=== PATIENT | male | born 1940 | race Caucasian/White ===

== ENCOUNTER 2018-01-30 06:12 | Emergency (ER) | payer MEDICARE, OTHER ==
[2018-01-30] MEDS ORDERED: Aspirin 81 MG Tab.Chew PO ONE (06:33)
[2018-01-30] MEDS ORDERED: Sodium Chloride 0.9% 10 ML Syringe FLUSH PRN (06:33)
--- NOTE | 2018-01-30 06:39 | EDM.PDOC ---
<Manolo Lucero - Last Filed: 01/30/18 06:35> ED HPI GENERAL MEDICAL PROBLEM - General Chief Complaint: Chest Pain Stated Complaint: CHEST PAIN Time Seen by Provider: 01/30/18 06:28 Source of Information: Reports: Patient History Limitations: Reports: No Limitations - History of Present Illness INITIAL COMMENTS - FREE TEXT/NARRATIVE: The patient presents with chest pain. This started a couple days ago. The pain comes and goes. It is in the lower chest and it is sharp. He has no pain now. He has no shortness of breath. He has no abdominal pain, nausea or vomiting. He has no fever, chills, or cough. 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 Onset: Gradual Duration: Day(s): (3) Location: Reports: Chest Quality: Reports: Sharp Severity: Moderate Improves with: Reports: None Worsens with: Reports: None Associated Symptoms: Reports: Chest Pain. Denies: Cough, Fever/Chills, Headaches, Nausea/Vomiting, Shortness of Breath - Related Data Allergies Allergy/AdvReac Type Severity Reaction Status Date / Time No Known Allergies Allergy Verified 01/30/18 06:16 Home Meds: Home Meds Hydroxyurea [Hydrea] 500 mg PO DAILY 12/06/14 [History] Lisinopril 1 tab PO DAILY 12/06/14 [History] Metoprolol Succinate 1 tab PO DAILY 12/06/14 [History] Triamterene/Hydrochlorothiazid [Triamterene-HCTZ 37.5-25 MG] 1 tab PO DAILY [History] Aspirin [Ecotrin] 81 mg PO DAILY 01/30/18 [History] Rosuvastatin [Crestor] 20 mg PO DAILY 01/30/18 [History] levETIRAcetam [Keppra] 500 mg PO BID 01/30/18 [History] Social & Family History - Tobacco Use Smoking Status *Q: Never Smoker Second Hand Smoke Exposure: No - Recreational Drug Use Recreational Drug Use: No ED ROS GENERAL - Review of Systems Review Of Systems: See Below Constitutional: Reports: No Symptoms HEENT: Reports: No Symptoms Respiratory: Reports: No Symptoms Cardiovascular: Reports: Chest Pain Endocrine: Reports: No Symptoms GI/Abdominal: Reports: No Symptoms : Reports: No Symptoms Musculoskeletal: Reports: No Symptoms ED EXAM, GENERAL - Physical Exam Exam: See Below Exam Limited By: No Limitations General Appearance: Alert, No Apparent Distress Ears: Normal External Exam Nose: Normal Inspection Head: Atraumatic, Normocephalic Neck: Normal Inspection Respiratory/Chest: No Respiratory Distress, Lungs Clear, Normal Breath Sounds Cardiovascular: Regular Rate, Rhythm, No Edema, No Murmur GI/Abdominal: Soft, Non-Tender, No Organomegaly, No Mass Extremities: Normal Inspection Neurological: Alert, Oriented, No Motor/Sensory Deficits EKG INTERPRETATION EKG Date: 01/30/18 Time: 06:17 Rhythm: NSR Rate (Beats/Min): 68 Blum: Normal P-Wave: Present QRS: Normal ST-T: Normal QT: Normal IA/PQ Interval: 1st degree HB Course - Vital Signs Last Recorded V/S: Last Vital Signs Temp 36.0 C 01/30/18 06:16 Pulse 76 01/30/18 06:16 Resp 18 01/30/18 06:16 BP 152/87 H 01/30/18 06:16 Pulse Ox 92 L 01/30/18 06:16 - Orders/Labs/Meds Orders: Active Orders 24 hr Category Date Time Status Cardiac Monitoring [RC] . DIRECTED Care 01/30/18 06:34 Active EKG Documentation Completion [RC] STAT Care 01/30/18 06:34 Active Peripheral IV Care [RC] . DIRECTED Care 01/30/18 06:34 Active Chest 1V Frontal [CR] Stat Exams 01/30/18 06:34 Taken Sodium Chloride 0.9% [Saline Flush] Med 01/30/18 06:33 Active 10 ml FLUSH ASDIRECTED PRN Peripheral IV Insertion Adult [OM.PC] Stat Oth 01/30/18 06:33 Ordered Medication Orders Sodium Chloride (Saline Flush) 10 ml FLUSH ASDIRECTED PRN PRN Reason: Keep Vein Open Last Admin: 01/30/18 06:40 Dose: 10 ml Labs: Laboratory Tests 01/30/18 01/30/18 01/30/18 Range/Units 06:30 06:30 06:30 WBC 5.13 (4.23-9.07) K/mm3 RBC 3.77 L (4.63-6.08) M/mm3 Hgb 13.8 (13.7-17.5) gm/L Hct 42.1 (40.1-51.0) % MCV 111.7 H (79.0-92.2) fl MCH 36.6 H (25.7-32.2) pg MCHC 32.8 (32.2-35.5) g/dl RDW Std Deviation 52.1 H (35.1-43.9) fL Plt Count 383 H (163-337) K/mm3 MPV 8.9 L (9.4-12.3) fl Neut % (Auto) 45.8 (34.0-67.9) % Lymph % (Auto) 36.8 (21.8-53.1) % [place] % (Auto) 15.0 H (5.3-12.2) % Eos % (Auto) 1.0 (0.8-7.0) Baso % (Auto) 1.2 (0.1-1.2) % Neut # (Auto) 2.35 (1.78-5.38) K/mm3 Lymph # (Auto) 1.89 (1.32-3.57) K/mm3 [place] # (Auto) 0.77 (0.30-0.82) K/mm3 Eos # (Auto) 0.05 (0.04-0.54) K/mm3 Baso # (Auto) 0.06 (0.01-0.08) K/mm3 Manual Slide Review Abnormal smear PT (9.5-12.1) SECONDS INR APTT (24-31) SECONDS D-Dimer, Quantitative 0.30 (0.19-0.50) mg/L Sodium 138 (136-145) mEq/L Potassium 3.7 (3.5-5.1) mEq/L Chloride 102 (98-107) mEq/L Carbon Dioxide 27 (21-32) mEq/L Anion Gap 12.7 (5-15) BUN 15 (7-18) mg/dL Creatinine 1.1 (0.7-1.3) mg/dL Est Cr Clr Drug Dosing 63.69 mL/min Estimated GFR (MDRD) > 60 (>60) mL/min BUN/Creatinine Ratio 13.6 L (14-18) Glucose 101 (83-115) mg/dL Calcium 9.1 (8.5-10.1) mg/dL Total Bilirubin 0.4 (0.2-1.0) mg/dL AST 22 (15-37) U/L ALT 29 (16-63) U/L Alkaline Phosphatase 49 (46-116) U/L Troponin I < 0.017 (0.00-0.056) ng/mL Total Protein 7.2 (6.4-8.2) g/dl Albumin 3.9 (3.4-5.0) g/dl Globulin 3.3 gm/dL Albumin/Globulin Ratio 1.2 (1-2) 01/30/18 Range/Units 06:30 WBC (4.23-9.07) K/mm3 RBC (4.63-6.08) M/mm3 Hgb (13.7-17.5) gm/L Hct (40.1-51.0) % MCV (79.0-92.2) fl MCH (25.7-32.2) pg MCHC (32.2-35.5) g/dl RDW Std Deviation (35.1-43.9) fL Plt Count (163-337) K/mm3 MPV (9.4-12.3) fl Neut % (Auto) (34.0-67.9) % Lymph % (Auto) (21.8-53.1) % [place] % (Auto) (5.3-12.2) % Eos % (Auto) (0.8-7.0) Baso % (Auto) (0.1-1.2) % Neut # (Auto) (1.78-5.38) K/mm3 Lymph # (Auto) (1.32-3.57) K/mm3 [place] # (Auto) (0.30-0.82) K/mm3 Eos # (Auto) (0.04-0.54) K/mm3 Baso # (Auto) (0.01-0.08) K/mm3 Manual Slide Review PT 10.8 (9.5-12.1) SECONDS INR 0.99 APTT 28 (24-31) SECONDS D-Dimer, Quantitative (0.19-0.50) mg/L Sodium (136-145) mEq/L Potassium (3.5-5.1) mEq/L Chloride (98-107) mEq/L Carbon Dioxide (21-32) mEq/L Anion Gap (5-15) BUN (7-18) mg/dL Creatinine (0.7-1.3) mg/dL Est Cr Clr Drug Dosing mL/min Estimated GFR (MDRD) (>60) mL/min BUN/Creatinine Ratio (14-18) Glucose (83-115) mg/dL Calcium (8.5-10.1) mg/dL Total Bilirubin (0.2-1.0) mg/dL AST (15-37) U/L ALT (16-63) U/L Alkaline Phosphatase (46-116) U/L Troponin I (0.00-0.056) ng/mL Total Protein (6.4-8.2) g/dl Albumin (3.4-5.0) g/dl Globulin gm/dL Albumin/Globulin Ratio (1-2) Meds: Medications Generic Name Dose Route Start Last Admin Trade Name Freq PRN Reason Stop Dose Admin Sodium Chloride 10 ml 01/30/18 06:33 01/30/18 06:40 Saline Flush FLUSH 10 ml ASDIRECTED PRN Administration Keep Vein Open Discontinued Medications Generic Name Dose Route Start Last Admin Trade Name Freq PRN Reason Stop Dose Admin Aspirin 324 mg 01/30/18 06:33 01/30/18 06:40 Aspirin PO 01/30/18 06:34 324 mg ONETIME ONE Administration - Re-Assessments/Exams Free Text/Narrative Re-Assessment/Exam: 01/30/18 06:38 I ordered an IV saline lock, aspirin, EKG, CXR, and labs. His EKG shows a 1st degree HB with no acute changes. It is change of shift Dr Macario to take over. Departure - Departure Disposition: Home, Self-Care 01 Clinical Impression: Chest pain of uncertain etiology Instructions: Chest Wall Pain Referrals: Obdulio Turner MD [Primary Care Provider] - Forms: ED Department Discharge Additional Instructions: You were seen in the emergency room for lower chest pain, on and off for the past 2 days. Workup in the ER included blood work, a chest x-ray, and an ECG. Your entire workup was unremarkable, and does not explain the cause of your pain. You have not suffered a heart attack. You do not have a blood clot in your lungs. You do not have pneumonia. You do not have a collapsed lung. If your chest pain persists, we recommend that you follow-up with your PCP, Dr. Turner, for further evaluation. <Calvin Macario - Last Filed: 01/30/18 08:20> ED HPI GENERAL MEDICAL PROBLEM - History of Present Illness INITIAL COMMENTS - FREE TEXT/NARRATIVE: The patient reports 2 days of a dull pain felt to the underside of both his left and right pectoralis muscles, extending as far as the axillae, but sparing the central chest. He also reports bilateral nipple soreness. When present, the pain will last for a few hours. He notices it primarily at night. Heat makes it feel better, but he has not found anything that makes it worse, including activity. He has no associated symptoms of dyspnea, nausea, diaphoresis, or sense of impending doom. He also denies associated abdominal pain, nausea, emesis, constipation, diarrhea, urinary symptoms, fever, chills, or cough. No prior similar symptoms. On closer scrutiny of the patient's history, it appears that he suffered a seizure on 12/06/2014. Initially there was a concern that he had an intracranial hemorrhage, and his troponin was mildly elevated. He was transferred [facility], where he underwent a MRI of the brain, an echocardiogram, and a nuclear stress test. His workup demonstrated a possible old stroke as a nidus for his seizure, otherwise, his workup was negative. The cause of his mildly elevated troponin was not discovered, although they did not feel that he had suffered a CT. He has never undergone a coronary angiogram. The patient's PCP is Dr. Turner. Past Medical History Cardiovascular History: Reports: High Cholesterol, Hypertension Neurological History: Reports: CVA (possible, per MRI/brain), Seizure Social & Family History - Alcohol Use Alcohol Use History: Yes Alcohol Use Frequency: Rarely - Recreational Drug Use Recreational Drug Use: No - Living Situation & Occupation Living situation: Reports: , Alone Occupation: Retired Course - Re-Assessments/Exams Free Text/Narrative Re-Assessment/Exam: 01/30/18 07:22 Portable chest radiograph appears to be grossly normal. Cardiac silhouette is within normal limits. No pulmonary vascular congestion. No pleural effusions. No focal infiltrate. No pneumothorax. Formal read per the Radiologist pending. 01/30/18 08:12 Test results discussed with the patient. Today's workup is unremarkable. Rules out recent cardiac injury, pulmonary embolus, pneumonia, and pneumothorax as potential causes for his pain. The exact etiology is unclear. I am recommending that he follow up with his PCP, Dr. Turner, for further evaluation. Departure - Departure Time of Disposition: 08:13 Condition: Good
[2018-01-30 08:28] VITALS: BP 125/70
--- NOTE | 2018-01-30 09:17 | CR ---
Chest: Portable view of the chest was obtained. Comparison: Prior chest x-ray of 10/12/09. Heart size and mediastinum are normal. Lungs are clear. Degenerative spurring is noted within the spine. Impression: 1. Nothing acute is identified on portable chest x-ray. Diagnostic code #1
== END 2018-01-30 08:25 | disposition home or self-care (01) ==
LOC: JD.ED 06:12
DX: R07.9 Chest pain, unspecified (principal); I10 Essential (primary) hypertension; E78.00 Pure hypercholesterolemia, unspecified; Z79.899 Other long term (current) drug therapy
CPT/HCPCS: 36415; 71045; 80053; 84484; 85025; 85379; 85610; 85730; 93005; 99284; A9270; J7050; 93010

== ENCOUNTER 2019-03-19 02:23 | Emergency (ER) | payer MEDICARE, OTHER ==
[2019-03-19 02:31] VITALS: BP 133/79
--- NOTE | 2019-03-19 03:10 | EDM.PDOC ---
ED HPI GENERAL MEDICAL PROBLEM - General Chief Complaint: Back Pain or Injury Stated Complaint: HIP PAIN Time Seen by Provider: 03/19/19 02:39 Source of Information: Reports: Patient History Limitations: Reports: No Limitations - History of Present Illness INITIAL COMMENTS - FREE TEXT/NARRATIVE: The patient presents with left hip and left lower back pain. This started a couple days ago. He has no injury. It is worse when he gets up from sitting. He has no numbness or weakness. He has no bowel or bladder problems. He has no fever, chills, cough, chest pain, shortness of breath, abdominal pain, nausea or vomiting. Onset: Gradual Duration: Day(s): Location: Reports: Back, Lower Extremity, Left (hip) Quality: Reports: Sharp Severity: Moderate Improves with: Reports: Immobilization Worsens with: Reports: Movement Associated Symptoms: Reports: No Other Symptoms Left Lower Back Pain Score (Numeric/FACES): 9 - Related Data Allergies Allergy/AdvReac Type Severity Reaction Status Date / Time No Known Allergies Allergy Verified 03/19/19 02:28 Home Meds: Home Meds Hydroxyurea [Hydrea] 500 mg PO DAILY 12/06/14 [History] Lisinopril 1 tab PO DAILY 12/06/14 [History] Metoprolol Succinate 1 tab PO DAILY 12/06/14 [History] Triamterene/Hydrochlorothiazid [Triamterene-HCTZ 37.5-25 MG] 1 tab PO DAILY [History] Aspirin [Ecotrin] 81 mg PO DAILY 01/30/18 [History] Rosuvastatin [Crestor] 20 mg PO DAILY 01/30/18 [History] levETIRAcetam [Keppra] 500 mg PO BID 01/30/18 [History] Naproxen [Naprosyn] 500 mg PO Q12HR PRN #20 tab 03/19/19 [Rx] Past Medical History HEENT History: Reports: Impaired Vision Other HEENT History: Wears glasses Cardiovascular History: Reports: Arrhythmia, High Cholesterol, Hypertension Musculoskeletal History: Reports: Fracture Neurological History: Reports: CVA, Seizure Social & Family History - Family History Family Medical History: Noncontributory - Tobacco Use Smoking Status *Q: Former Smoker Used Tobacco, but Quit: Yes Month/Year Tobacco Last Used: 2003 - Recreational Drug Use Recreational Drug Use: No - Living Situation & Occupation Living situation: Reports: , Alone Occupation: Retired ED ROS GENERAL - Review of Systems Review Of Systems: See Below Constitutional: Reports: No Symptoms HEENT: Reports: No Symptoms Respiratory: Reports: No Symptoms Cardiovascular: Reports: No Symptoms Endocrine: Reports: No Symptoms GI/Abdominal: Reports: No Symptoms : Reports: No Symptoms Musculoskeletal: Reports: Back Pain, Other (Left hip pain) ED EXAM,LOWER BACK PAIN/INJURY - Physical Exam Exam: See Below Exam Limited By: No Limitations General Appearance: Alert, No Apparent Distress Ears: Normal External Exam Nose: Normal Inspection Head: Atraumatic, Normocephalic Neck: Normal Inspection Respiratory/Chest: No Respiratory Distress, Lungs Clear, Normal Breath Sounds Cardiovascular: Regular Rate, Rhythm, No Edema, No Murmur GI/Abdominal: Soft, Non-Tender, No Organomegaly, No Mass Back Exam: Other (Mild pain upon palpation to the left lower lateral back) Extremities: Other (Mild pain upon palpation to the left upper hip. Good sensation and pulses distally. No pain with internal and external rotation and axial loading. ) Course - Vital Signs Last Recorded V/S: Last Vital Signs Temp 97.8 F 03/19/19 02:29 Pulse 76 03/19/19 02:29 Resp 17 03/19/19 02:29 BP 133/79 03/19/19 02:29 Pulse Ox 93 L 03/19/19 02:29 - Orders/Labs/Meds Orders: Active Orders 24 hr Category Date Time Status Hip Min 2V or 3V w Pelvis Lt [CR] Stat Exams 03/19/19 02:58 Taken Lumbar Spine 2 or 3V [CR] Stat Exams 03/19/19 02:57 Taken - Re-Assessments/Exams Free Text/Narrative Re-Assessment/Exam: 03/19/19 03:10 I ordered an x-ray of his left hip, pelvis and low back. 03/19/19 03:46 His x-rays show arthritis and decreased disc space in the lumbar spine with scoliosis. I will try some naprosyn for pain. Departure - Departure Time of Disposition: 03:50 Disposition: Home, Self-Care 01 Condition: Good Clinical Impression: Arthritis, Left hip pain Scoliosis Qualifiers: Scoliosis type: idiopathic Idiopathic scoliosis type: other Spinal region: lumbar Qualified Code(s): M41.26 - Other idiopathic scoliosis, lumbar region - Discharge Information *PRESCRIPTION DRUG MONITORING PROGRAM REVIEWED*: No *COPY OF PRESCRIPTION DRUG MONITORING REPORT IN PATIENT ALIDA: No Prescriptions: Naproxen [Naprosyn] 500 mg PO Q12HR PRN #20 tab PRN Reason: Pain Referrals: Obdulio Turner MD [Primary Care Provider] - 1 Week Forms: ED Department Discharge Additional Instructions: Take the naprosyn every 12 hours as needed for pain. Try some ice on your hip. Please return if you are worse. - My Orders Last 24 Hours: My Active Orders 03/19/19 02:57 Lumbar Spine 2 or 3V [CR] Stat 03/19/19 02:58 Hip Min 2V or 3V w Pelvis Lt [CR] Stat - Assessment/Plan Last 24 Hours: My Active Orders 03/19/19 02:57 Lumbar Spine 2 or 3V [CR] Stat 03/19/19 02:58 Hip Min 2V or 3V w Pelvis Lt [CR] Stat
--- NOTE | 2019-03-19 07:21 | CR ---
Pelvis and left hip: AP view of pelvis was obtained as well as AP and frog-leg lateral views of left hip. Joint spaces within both hips are maintained. Minimal spurring noted off of both superior acetabulum. Sacroiliac joints are within normal limits. Bony structures are osteopenic. Vascular calcification is seen. No fracture or other bony abnormality is seen. Impression: 1. Mild degenerative change and other incidental findings. 2. Nothing acute is seen. Diagnostic code #2
--- NOTE | 2019-03-19 07:21 | CR ---
Lumbar spine: AP, lateral and cone-down lateral views centered to the lumbosacral junction were obtained. Comparison: No prior lumbar spine imaging. Diffuse anterior endplate osteophytes are seen. Mild posterior osteophytes are noted at the L2-L3, L3-L4 and L4-L5. Fairly severe disc space narrowing is noted at L5-S1. Minimal scoliosis is seen. Pedicles are intact. Visualized transverse and spinous processes are intact. No subluxation is seen. Diffuse vascular calcification is noted within the aorta. Impression: 1. Scattered degenerative change and minimal scoliosis. 2. Vascular calcification. Diagnostic code #2
== END 2019-03-19 03:59 | disposition home or self-care (01) ==
LOC: JD.ED 02:23
DX: M41.26 Other idiopathic scoliosis, lumbar region (principal); M16.12 Unilateral primary osteoarthritis, left hip; I10 Essential (primary) hypertension; E78.00 Pure hypercholesterolemia, unspecified; Z87.891 Personal history of nicotine dependence; Z79.899 Other long term (current) drug therapy
CPT/HCPCS: 72100; 72100-26; 73502-26-LT; 73502-LT; 99283; 99283-25

== ENCOUNTER 2021-02-21 23:01 | Emergency (ER) | payer MEDICARE, OTHER ==
[2021-02-21 23:22] VITALS: BP 137/74; PULSE 71
--- NOTE | 2021-02-22 00:17 | EDM.PDOC ---
ED HPI GENERAL MEDICAL PROBLEM - General Chief Complaint: Genitourinary Problem Stated Complaint: UNABLE TO URINATE Time Seen by Provider: 02/21/21 23:39 Source of Information: Reports: Patient History Limitations: Reports: No Limitations - History of Present Illness INITIAL COMMENTS - FREE TEXT/NARRATIVE: Patient arrived to ED by private vehicle He reports intermittent urinary frequency and hesitancy over the past couple weeks Tonight he was unable to void "since daytime" so came to ED for evaluation Upon arrival to ED, he went "straight to the bathroom" and was able to void, with improvement in discomfort He endorses some discomfort with urination Denies nausea, fever, back pain Denies extremity weakness or paresthesias Denies any bowel dysfunction - Related Data Allergies Allergy/AdvReac Type Severity Reaction Status Date / Time No Known Allergies Allergy Verified 02/21/21 23:22 Home Meds: Home Meds Hydroxyurea [Hydrea] 500 mg PO DAILY 12/06/14 [History] Lisinopril 1 tab PO DAILY 12/06/14 [History] Metoprolol Succinate 1 tab PO DAILY 12/06/14 [History] Triamterene/Hydrochlorothiazid [Triamterene-HCTZ 37.5-25 MG] 1 tab PO DAILY 12/06/14 [History] Aspirin [Ecotrin] 81 mg PO DAILY 01/30/18 [History] Rosuvastatin [Crestor] 20 mg PO DAILY 01/30/18 [History] levETIRAcetam [Keppra] 500 mg PO BID 01/30/18 [History] Naproxen [Naprosyn] 500 mg PO Q12HR PRN #20 tab 03/19/19 [Rx] Past Medical History HEENT History: Reports: Impaired Vision Other HEENT History: Wears glasses Cardiovascular History: Reports: Arrhythmia, High Cholesterol, Hypertension Musculoskeletal History: Reports: Fracture Neurological History: Reports: CVA, Seizure Social & Family History - Family History Family Medical History: No Pertinent Family History - Tobacco Use Tobacco Use Status *Q: Former Tobacco User Used Tobacco, but Quit: Yes Month/Year Tobacco Last Used: 20 yrs ago - Living Situation & Occupation Living situation: Reports: , Alone Occupation: Retired ED ROS GENERAL - Review of Systems Review Of Systems: See Below Free Text/Narrative/Comment: Constitutional - no fever Cardiovascular - no chest pain Respiratory - no shortness of breath; no cough Gastrointestinal - no abdominal pain; no nausea; no vomiting; no diarrhea Genitourinary - mild dysuria; urinary frequency Musculoskeletal - no neck pain; no back pain; no extremity injury Neurological - no headache; no speech disturbance; no weakness ED EXAM, GENERAL - Physical Exam Exam: See Below Free Text/Narrative:: Constitutional - awake; alert; no acute distress Head - no facial swelling or weakness Eyes - extra ocular motion intact; conjunctiva normal ENT - no nasal deformity; no epistaxis; normal phonation Respiratory - normal respiratory effort GI/Abdomen - soft; no tenderness; no rebound; no guarding; mild suprapubic fullness Genitourinary - normal rectal tone; prostate significantly enlarged and firm with some nodularity Musculoskeletal - grossly normal strength and motion; no swelling or deformity Skin - warm; dry Neurologic - normal speech; no weakness; gait intact Psychiatric - normal mood and affect; memory and attention normal Course - Vital Signs Text/Narrative:: . Considered etiologies included: urinary frequency, urinary retention, prostate disease Symptoms and examination were discussed There were no significant findings for spinal cord compression or cauda equina syndrome Investigations were initiated Consideration for urinary catheter placement was discussed and deferred He was advised of abnormal prostate findings and need for timely urology follow- up Possibility for urinary retention in near future was discussed Patient was felt to be stable for outpatient follow-up Return precautions were provided Last Recorded V/S: Last Vital Signs Temp 36.2 C 02/21/21 23:20 Pulse 71 02/21/21 23:20 Resp 16 02/21/21 23:20 BP 137/74 02/21/21 23:20 Pulse Ox 98 02/21/21 23:20 - Orders/Labs/Meds Labs: Laboratory Tests 02/22/21 Range/Units 00:13 Urine Color Yellow (Yellow) Urine Appearance Clear (Clear) Urine pH 6.0 (5.0-8.0) Ur Specific [place] > or = 1.030 (1.005-1.030) Urine Protein Negative (Negative) Urine Glucose (UA) Negative (Negative) Urine Ketones Negative (Negative) Urine Occult Blood Negative (Negative) Urine Nitrite Negative (Negative) Urine Bilirubin Negative (Negative) Urine Urobilinogen 0.2 (0.2-1.0) Ur Leukocyte Esterase Negative (Negative) U Hyaline Cast (Auto) 0-5 (0-5) /lpf Urine RBC Not seen (0-5) /hpf Urine WBC 0-5 (0-5) /hpf Ur Squamous Epith Cells 0-5 (0-5) /hpf Urine Bacteria Rare (FEW) /hpf Urine Mucus Rare (FEW) /hpf Departure - Departure Time of Disposition: 00:54 Disposition: Home, Self-Care 01 Condition: Good Clinical Impression: Enlarged prostate, Urinary dysfunction - Discharge Information Instructions: Acute Urinary Retention, Male Referrals: Obdulio Turner MD [Primary Care Provider] - Forms: ED Department Discharge Additional Instructions: Return if condition worsens May resume general activity and regular diet as tolerated Continue usual medications Follow-up with primary care provider is recommended Follow-up with urologist is recommended within 1 week Call [facility] ([phone]) or [facility] ([phone]) to arrange urology consultation Inform urology clinic that you are having urination difficulties, with abnormal prostate texture on examination Sepsis Event Note (ED) - Evaluation Sepsis Screening Result: No Definite Risk
== END 2021-02-22 01:41 | disposition home or self-care (01) ==
LOC: JD.ED 23:01
DX: N40.1 Benign prostatic hyperplasia with lower urinary tract symptoms (principal); R35.0 Frequency of micturition; N39.9 Disorder of urinary system, unspecified; E78.00 Pure hypercholesterolemia, unspecified; I10 Essential (primary) hypertension; Z79.82 Long term (current) use of aspirin; Z79.899 Other long term (current) drug therapy; Z87.891 Personal history of nicotine dependence
CPT/HCPCS: 81001; 99283

== ENCOUNTER 2021-03-02 22:29 | Emergency (ER) | payer MEDICARE, OTHER ==
[2021-03-02 22:51] VITALS: BP 156/103; PULSE 114
[2021-03-03] MEDS ORDERED: Tamsulosin 0.4 MG Cap.ER PO ONE (00:51)
--- NOTE | 2021-03-03 00:54 | EDM.PDOC ---
ED HPI GENERAL MEDICAL PROBLEM - General Chief Complaint: Genitourinary Problem Stated Complaint: UNABLE TO URINATE Time Seen by Provider: 03/02/21 22:58 Source of Information: Reports: Patient, RN Notes Reviewed - History of Present Illness INITIAL COMMENTS - FREE TEXT/NARRATIVE: Has had voiding difficulty off and on for a long time, worse the past few weeks. Was seen here about 9 days ago. Prostate noted to be enlarged at that time with nodules palpable on exam. As a result of that visit has a Urology appointment for early next week. Yesterday and today has urgency, frequency, going just small amounts at a time. No hematuria. No fever or chills. - Related Data Allergies Allergy/AdvReac Type Severity Reaction Status Date / Time No Known Allergies Allergy Verified 03/02/21 22:39 Home Meds: Home Meds Hydroxyurea [Hydrea] 500 mg PO DAILY 12/06/14 [History] Lisinopril 1 tab PO DAILY 12/06/14 [History] Metoprolol Succinate 1 tab PO DAILY 12/06/14 [History] Triamterene/Hydrochlorothiazid [Triamterene-HCTZ 37.5-25 MG] 1 tab PO DAILY 12/06/14 [History] Aspirin [Ecotrin] 81 mg PO DAILY 01/30/18 [History] Rosuvastatin [Crestor] 20 mg PO DAILY 01/30/18 [History] levETIRAcetam [Keppra] 500 mg PO BID 01/30/18 [History] Naproxen [Naprosyn] 500 mg PO Q12HR PRN #20 tab 03/19/19 [Rx] Tamsulosin HCl [Flomax] 0.4 mg PO DAILY #10 cap.er.24h 03/03/21 [Rx] Past Medical History HEENT History: Reports: Impaired Vision Other HEENT History: Wears glasses Cardiovascular History: Reports: Arrhythmia, High Cholesterol, Hypertension Respiratory History: Reports: None Gastrointestinal History: Reports: None Genitourinary History: Reports: None Musculoskeletal History: Reports: Fracture Neurological History: Reports: CVA, Seizure Psychiatric History: Reports: None Endocrine/Metabolic History: Reports: None Hematologic History: Reports: None Immunologic History: Reports: None Oncologic (Cancer) History: Reports: None Dermatologic History: Reports: None - Infectious Disease History Infectious Disease History: Reports: Chicken Pox, Measles, Mumps - Past Surgical History Head Surgeries/Procedures: Reports: None Male Surgical History: Reports: None Social & Family History - Family History Family Medical History: No Pertinent Family History - Tobacco Use Tobacco Use Status *Q: Never Tobacco User - Caffeine Use Caffeine Use: Reports: Coffee - Recreational Drug Use Recreational Drug Use: No - Living Situation & Occupation Living situation: Reports: , Alone Occupation: Retired ED ROS GENERAL - Review of Systems Review Of Systems: See Below Constitutional: Denies: Fever, Chills HEENT: Reports: No Symptoms Respiratory: Denies: Shortness of Breath Cardiovascular: Denies: Chest Pain GI/Abdominal: Denies: Abdominal Pain, Nausea, Vomiting : Reports: Frequency, Urgency. Denies: Dysuria, Hematuria Musculoskeletal: Denies: Back Pain Skin: Reports: No Symptoms ED EXAM, RENAL/ - Physical Exam Exam: See Below General Appearance: Alert, No Apparent Distress Head: Atraumatic Neck: Supple Respiratory/Chest: No Respiratory Distress Cardiovascular: Regular Rate, Rhythm GI/Abdominal: Soft, Non-Tender. No: Distended, Guarding Extremities: No: Pedal Edema, Leg Pain Neurological: Alert, Oriented, No Motor/Sensory Deficits Skin Exam: Dry, Normal Color, No Rash Course - Vital Signs Last Recorded V/S: Last Vital Signs Temp 98.7 F 03/02/21 22:46 Pulse 114 H 03/02/21 22:46 Resp 20 03/02/21 22:46 BP 156/103 H 03/02/21 22:46 Pulse Ox 93 L 03/02/21 22:46 - Orders/Labs/Meds Labs: Laboratory Tests 03/02/21 Range/Units 23:55 Urine Color Yellow (Yellow) Urine Appearance Clear (Clear) Urine pH 6.0 (5.0-8.0) Ur Specific [place] 1.020 (1.005-1.030) Urine Protein Negative (Negative) Urine Glucose (UA) Negative (Negative) Urine Ketones Negative (Negative) Urine Occult Blood Negative (Negative) Urine Nitrite Negative (Negative) Urine Bilirubin Negative (Negative) Urine Urobilinogen 0.2 (0.2-1.0) Ur Leukocyte Esterase Trace H (Negative) U Hyaline Cast (Auto) 5-10 H (0-5) /lpf Urine RBC 0-5 (0-5) /hpf Urine WBC 0-5 (0-5) /hpf Ur Squamous Epith Cells Not seen (0-5) /hpf Urine Bacteria Rare (FEW) /hpf Urine Mucus Rare (FEW) /hpf Meds: Medications Discontinued Medications Generic Name Dose Route Start Last Admin Trade Name Tomasz PRN Reason Stop Dose Admin Tamsulosin HCl 0.4 mg 03/03/21 00:51 03/03/21 00:59 Tamsulosin 0.4 Mg Cap.Er PO 03/03/21 00:52 0.4 mg ONETIME ONE Administration - Re-Assessments/Exams Free Text/Narrative Re-Assessment/Exam: 03/03/21 03:24 Ua does not show acute infection or hematuria. Had prostate checked 9 days ago, recent ED visit. Will start him on flomax. His Urology appt. is next week about 5 days from now. Departure - Departure Time of Disposition: 00:52 Disposition: Home, Self-Care 01 Condition: Fair Clinical Impression: Retention of urine, Enlarged prostate - Discharge Information Prescriptions: Tamsulosin HCl [Flomax] 0.4 mg PO DAILY #10 cap.er.24h Instructions: Benign Prostatic Hyperplasia, Acute Urinary Retention, Male, [id number] Referrals: PCP,None [Primary Care Provider] - Forms: ED Department Discharge Additional Instructions: Drink plenty of water to maintain hydration. Flomax 0.4 mg daily. Prescription has been sent to [facility] on [address]. See Urologist next week as planned. Return to ED as needed. Sepsis Event Note (ED) - Evaluation Sepsis Screening Result: No Definite Risk - Focused Exam Vital Signs: Vital Signs Temp Pulse Resp BP Pulse Ox 03/02/21 22:46 98.7 F 114 H 20 156/103 H 93 L
== END 2021-03-03 01:00 | disposition home or self-care (01) ==
LOC: JD.ED 22:29
DX: N40.1 Benign prostatic hyperplasia with lower urinary tract symptoms (principal); R33.9 Retention of urine, unspecified; E78.00 Pure hypercholesterolemia, unspecified; I10 Essential (primary) hypertension; Z79.899 Other long term (current) drug therapy; Z79.82 Long term (current) use of aspirin
CPT/HCPCS: 81001; 99283; A9270

== ENCOUNTER 2021-03-30 06:31 | Emergency (ER) | payer MEDICARE, OTHER ==
[2021-03-30 06:48] VITALS: BP 134/75; PULSE 84
--- NOTE | 2021-03-30 07:05 | EDM.PDOC ---
ED HPI GENERAL MEDICAL PROBLEM - General Chief Complaint: Genitourinary Problem Stated Complaint: DIFFICULTY URINATING Time Seen by Provider: 03/30/21 07:05 - History of Present Illness INITIAL COMMENTS - FREE TEXT/NARRATIVE: 80-year-old male returns emergency week room with urinary difficulties. Patient is having a hard time getting his stream going and have a hard time emptying he can dribble but that is about it. He denies any fevers or chills or no other complaints at this time. Patient has seen urology in the past they talked about putting a catheter in but that did not happen. Patient does not really have discomfort when he voids. The patient cannot recall which urologist he saw him but believes it was at [facility]. - Related Data Allergies Allergy/AdvReac Type Severity Reaction Status Date / Time No Known Allergies Allergy Verified 03/30/21 06:48 Home Meds: Home Meds Hydroxyurea [Hydrea] 500 mg PO DAILY 12/06/14 [History] Lisinopril 5 mg PO DAILY 12/06/14 [History] Metoprolol Succinate 50 mg PO DAILY 12/06/14 [History] Triamterene/Hydrochlorothiazid [Triamterene-HCTZ 37.5-25 MG] 1 tab PO DAILY 12/06/14 [History] Aspirin [Ecotrin] 81 mg PO DAILY 01/30/18 [History] Rosuvastatin [Crestor] 20 mg PO DAILY 01/30/18 [History] levETIRAcetam [Keppra] 500 mg PO BID 01/30/18 [History] Tamsulosin HCl [Flomax] 0.4 mg PO DAILY #10 cap.er.24h 03/03/21 [Rx] Past Medical History HEENT History: Reports: Impaired Vision Other HEENT History: Wears glasses Cardiovascular History: Reports: Arrhythmia, High Cholesterol, Hypertension Respiratory History: Reports: None Gastrointestinal History: Reports: None Genitourinary History: Reports: Retention, Urinary Musculoskeletal History: Reports: Fracture Neurological History: Reports: CVA, Seizure Psychiatric History: Reports: None Endocrine/Metabolic History: Reports: None Hematologic History: Reports: None Immunologic History: Reports: None Oncologic (Cancer) History: Reports: None Dermatologic History: Reports: None - Infectious Disease History Infectious Disease History: Reports: Chicken Pox, Measles, Mumps - Past Surgical History Head Surgeries/Procedures: Reports: None Male Surgical History: Reports: None Social & Family History - Family History Family Medical History: No Pertinent Family History - Tobacco Use Tobacco Use Status *Q: Former Tobacco User Used Tobacco, but Quit: Yes Month/Year Tobacco Last Used: 10/21/2009 - Caffeine Use Caffeine Use: Reports: None - Recreational Drug Use Recreational Drug Use: No - Living Situation & Occupation Living situation: Reports: , Alone Occupation: Retired ED ROS GENERAL - Review of Systems Review Of Systems: See Below Constitutional: Reports: No Symptoms HEENT: Reports: No Symptoms Respiratory: Reports: No Symptoms Cardiovascular: Reports: No Symptoms GI/Abdominal: Reports: No Symptoms : Reports: Urinary Retention. Denies: Discharge, Dysuria, Flank Pain, Frequency, Urgency Musculoskeletal: Reports: No Symptoms Neurological: Reports: No Symptoms ED EXAM, GENERAL - Physical Exam Exam: See Below Exam Limited By: No Limitations General Appearance: Alert, No Apparent Distress Head: Atraumatic, Normocephalic Neck: Normal Inspection, Supple, Non-Tender, Full Range of Motion Respiratory/Chest: No Respiratory Distress, Lungs Clear, Normal Breath Sounds, No Accessory Muscle Use, Chest Non-Tender Cardiovascular: Normal Peripheral Pulses, Regular Rate, Rhythm, No Edema GI/Abdominal: Normal Bowel Sounds, Soft, Non-Tender Back Exam: Normal Inspection. No: CVA Tenderness (L), CVA Tenderness (R) Course - Vital Signs Last Recorded V/S: Last Vital Signs Temp 36.6 C 03/30/21 06:44 Pulse 84 03/30/21 06:44 Resp 20 03/30/21 06:44 BP 134/75 03/30/21 06:44 Pulse Ox 95 03/30/21 06:44 - Orders/Labs/Meds Labs: Laboratory Tests 03/30/21 Range/Units 07:15 Urine Color Yellow (Yellow) Urine Appearance Clear (Clear) Urine pH 6.5 (5.0-8.0) Ur Specific [place] 1.020 (1.005-1.030) Urine Protein Negative (Negative) Urine Glucose (UA) Negative (Negative) Urine Ketones Negative (Negative) Urine Occult Blood Negative (Negative) Urine Nitrite Negative (Negative) Urine Bilirubin Negative (Negative) Urine Urobilinogen 0.2 (0.2-1.0) Ur Leukocyte Esterase Negative (Negative) - Re-Assessments/Exams Free Text/Narrative Re-Assessment/Exam: 03/30/21 07:28 Were able to get about 100 cc urine clean catch. I did contact [facility] call and apparently the patient saw Dr. Powell at the end of last month. 03/30/21 07:53 Patient's urinalysis does not suggest an infectious process. I discussed situation with Dr. Bender, on-call urologist at [facility] his recommendation is to put a Veronica in the patient will be more comfortable. And have the patient follow-up with his regular urologist next week as scheduled. Departure - Departure Time of Disposition: 07:54 Disposition: Home, Self-Care 01 Clinical Impression: Urinary obstruction - Discharge Information Instructions: Indwelling Urinary Catheter Care, Adult Referrals: Ashlyn Houston NP [Primary Care Provider] - Forms: ED Department Discharge Additional Instructions: Return to the emergency room with any questions problems or concerning symptoms. Follow-up with Dr. Powell early next week if possible, I am not sure what day next week your appointment is scheduled for. Sepsis Event Note (ED) - Evaluation Sepsis Screening Result: No Definite Risk - Focused Exam Vital Signs: Vital Signs Temp Pulse Resp BP Pulse Ox 03/30/21 06:44 36.6 C 84 20 134/75 95
== END 2021-03-30 08:30 | disposition home or self-care (01) ==
LOC: JD.ED 06:31
DX: N13.9 Obstructive and reflux uropathy, unspecified (principal); E78.00 Pure hypercholesterolemia, unspecified; I10 Essential (primary) hypertension; Z87.891 Personal history of nicotine dependence; Z79.82 Long term (current) use of aspirin; Z79.899 Other long term (current) drug therapy
CPT/HCPCS: 51702; 81003; 99283; 99283-25

== ENCOUNTER 2021-04-20 07:01 | Emergency (ER) | payer MEDICARE, OTHER ==
[2021-04-20 07:31] VITALS: BP 120/81; PULSE 70
--- NOTE | 2021-04-20 07:54 | EDM.PDOC ---
ED HPI GENERAL MEDICAL PROBLEM - General Chief Complaint: Genitourinary Problem Stated Complaint: URINARY ISSUES NOT BETTER Time Seen by Provider: 04/20/21 07:29 Source of Information: Reports: Patient History Limitations: Reports: No Limitations - History of Present Illness INITIAL COMMENTS - FREE TEXT/NARRATIVE: 80 yo M with indwelling marie presents with marie problem. Catheter had disconnected from leg bag anchor/straps. Nurses fixed the issue prior to me seeing the patient. He has no other concerns. No fever/illness. States his urology f/u appointment was moved, he doesn't know when it is. I encouraged him to follow up locally with Dr. Turner. Discussed ED return precautions. - Related Data Allergies Allergy/AdvReac Type Severity Reaction Status Date / Time No Known Allergies Allergy Verified 04/20/21 07:25 Home Meds: Home Meds Hydroxyurea [Hydrea] 500 mg PO DAILY 12/06/14 [History] Lisinopril 5 mg PO DAILY 12/06/14 [History] Metoprolol Succinate 50 mg PO DAILY 12/06/14 [History] Triamterene/Hydrochlorothiazid [Triamterene-HCTZ 37.5-25 MG] 1 tab PO DAILY 12/06/14 [History] Aspirin [Ecotrin] 81 mg PO DAILY 01/30/18 [History] Rosuvastatin [Crestor] 20 mg PO DAILY 01/30/18 [History] levETIRAcetam [Keppra] 500 mg PO BID 01/30/18 [History] Tamsulosin HCl [Flomax] 0.4 mg PO DAILY #10 cap.er.24h 03/03/21 [Rx] Past Medical History HEENT History: Reports: Impaired Vision Other HEENT History: Wears glasses Cardiovascular History: Reports: Arrhythmia, High Cholesterol, Hypertension Respiratory History: Reports: None Gastrointestinal History: Reports: None Genitourinary History: Reports: Retention, Urinary Musculoskeletal History: Reports: Fracture Neurological History: Reports: CVA, Seizure Psychiatric History: Reports: None Endocrine/Metabolic History: Reports: None Hematologic History: Reports: None Immunologic History: Reports: None Oncologic (Cancer) History: Reports: None Dermatologic History: Reports: None - Infectious Disease History Infectious Disease History: Reports: Chicken Pox, Measles, Mumps - Past Surgical History Head Surgeries/Procedures: Reports: None Male Surgical History: Reports: None Social & Family History - Family History Family Medical History: No Pertinent Family History - Tobacco Use Tobacco Use Status *Q: Former Tobacco User Years of Tobacco use: 4 Packs/Tins Daily: 1 Used Tobacco, but Quit: Yes Month/Year Tobacco Last Used: 10/1980 Second Hand Smoke Exposure: No - Caffeine Use Caffeine Use: Reports: Coffee - Recreational Drug Use Recreational Drug Use: No - Living Situation & Occupation Living situation: Reports: , Alone Occupation: Retired ED ROS GENERAL - Review of Systems Review Of Systems: See Below Constitutional: Denies: Fever GI/Abdominal: Reports: No Symptoms : Reports: Other (marie problem ) ED EXAM, GENERAL - Physical Exam Exam: See Below Exam Limited By: No Limitations General Appearance: Alert, WD/WN, No Apparent Distress Head: Atraumatic Neck: Normal Inspection Respiratory/Chest: No Respiratory Distress GI/Abdominal: Non-Tender, No Distention Neurological: Alert Psychiatric: Normal Affect Skin Exam: Warm, Dry Course - Vital Signs Last Recorded V/S: Last Vital Signs Temp 36.7 C 04/20/21 07:27 Pulse 70 04/20/21 07:27 Resp 14 04/20/21 07:27 BP 120/81 04/20/21 07:27 Pulse Ox 94 L 04/20/21 07:27 Departure - Departure Time of Disposition: 07:50 Disposition: Home, Self-Care 01 Clinical Impression: Marie catheter problem Qualifiers: Encounter type: initial encounter Qualified Code(s): T83.9XXA - Unspecified complication of genitourinary prosthetic device, implant and graft, initial encounter - Discharge Information Referrals: Obdulio Turner MD [Primary Care Provider] - Additional Instructions: 1. Follow up with Dr. Turner as soon as possible - call [phone] to schedule. 2. Return to the ED as needed for pain,fever, vomiting, blood in the urine, or other concerning symptoms. 3. For minor problems, you may also go to the [place] walk in clinic ([address] [facility]) or the [facility] walk in clinic (call [phone]) Sepsis Event Note (ED) - Evaluation Sepsis Screening Result: No Definite Risk - Focused Exam Vital Signs: Vital Signs Temp Pulse Resp BP Pulse Ox 04/20/21 07:27 36.7 C 70 14 120/81 94 L
== END 2021-04-20 08:02 | disposition home or self-care (01) ==
LOC: JD.ED 07:01
DX: T83.091A Other mechanical complication of indwelling urethral catheter, initial encounter (principal); E78.00 Pure hypercholesterolemia, unspecified; I10 Essential (primary) hypertension; Z79.82 Long term (current) use of aspirin; Z79.899 Other long term (current) drug therapy; Z87.891 Personal history of nicotine dependence
CPT/HCPCS: 99283